=== PATIENT | male | born 1995 | race Caucasian/White ===

== ENCOUNTER 2016-12-13 04:12 | Emergency (ER) | payer OTHER ==
[~2016-12-13 04:12] MED LIST: BACTRIM DS TABL1 TA1 PO; DICLOFENAC PO
== END 2016-12-13 05:11 | disposition home or self-care (01) ==
LOC: CED 04:12
DX: L02.31 Cutaneous abscess of buttock (principal); F17.210 Nicotine dependence, cigarettes, uncomplicated
CPT/HCPCS: 99282; J1885

== ENCOUNTER 2016-12-14 10:27 | Emergency (ER) | payer OTHER ==
--- NOTE | ~2016-12-14 | CR21 ---
[facility] A Service of [facility] & [facility] RADIOLOGY TEXT RESULTS PATIENT: TADEO PASTOR LOCATION: CFTX : [birth year] UNIT #: [id number] AGE: [address]: Miquel Gomez SEX: M ORDER DR: [id number] [place] [address] [facility]. [place], [place] [address] [id number] E MR#: [id number] Acc #: [id number] NAME: TADEO PASTOR : 1995 SEX: M STUDY DATE/TIME: 12/14/2016 10:42 UNIT: CFTX ROOM: STUDY DESCRIPTION: CR Ankle Min 3 Views Rt Attending Physician: Miquel Gomez Ordering Physician: Miquel Gomez Primary Care Physician: Primary Care Physician No MEDICAL IMAGING REPORT This report is preliminary unless electronic signature is present EXAM Right ankle, 12/14/2016 HISTORY 21-year-old male in the ED complaining of right knee pain with walking beginning last evening. No reported acute traumatic injury. TECHNIQUE Three-view right ankle series. FINDINGS The examination is negative. No acute or chronic fracture deformity or other osseous lesion. IMPRESSION Negative right ankle series. Dictated by... Jerome Nicholson M.D. THIS IS AN ELECTRONICALLY VERIFIED REPORT Jerome Nicholson M.D. at 12/14/2016 3:58 PM Holli TD: 12/14/2016 12:36 JOB #: [id number] MEDICAL IMAGING REPORT Page 1 of 1 COPY
== END 2016-12-14 13:05 | disposition home or self-care (01) ==
LOC: CFTX 10:27
DX: S93.401A Sprain of unspecified ligament of right ankle, initial encounter (principal); S90.812A Abrasion, left foot, initial encounter; S90.811A Abrasion, right foot, initial encounter; R03.0 Elevated blood-pressure reading, without diagnosis of hypertension; F17.210 Nicotine dependence, cigarettes, uncomplicated; Z87.442 Personal history of urinary calculi; X58.XXXA Exposure to other specified factors, initial encounter; Y92.009 Unspecified place in unspecified non-institutional (private) residence as the place of occurrence of the external cause
CPT/HCPCS: 29540; 73610; 99283

== ENCOUNTER 2016-12-20 23:33 | Emergency (ER) | payer OTHER | END 2016-12-20 23:50 | disposition home or self-care (01) | LOC: CED 23:33 | DX: K02.9 Dental caries, unspecified (principal); F17.210 Nicotine dependence, cigarettes, uncomplicated; Z79.899 Other long term (current) drug therapy | CPT/HCPCS: 99282 ==